=== PATIENT | male | born 1985 | race Two or more races ===

== ENCOUNTER 2017-09-16 18:55 | Inpatient (IN) | payer OTHER ==
[2017-09-16 20:15] VITALS: BMI 23.1
--- NOTE | 2017-09-16 21:45 | HP ---
COWS - Scale Resting Pulse: 0= [place] 80 or Below Sweatin=Flushed/Facial Moisture Restless Observation: 3= Extraneous Movement Pupil Size: 1= Pupils >than Normal Bone or Joint Aches: 1= Mild Discomfort Runny Nose/ Eye Tearin= Runny Nose/Eyes GI Upset > 30mins: 1= Stomach Cramp Tremor Observation: 2= Slight Tremor Visible Yawning Observation: 2= >3x During Session Anxiety or Irritability: 2=Irritable/Anxious Goose Flesh Skin: 3=Piloerection COWS Score: 19 CIWA Score - CIWA Score Nausea/Vomitin Muscle Tremors: 4-Moderate,w/Arms Extend Anxiety: 4-Mod. Anxious/Guarded Agitation: 0-Normal Activity Paroxysmal Sweats: 3 Orientation: 0-Oriented Tacttile Disturbances: 1-Very Mild Itch/Numbness Auditory Disturbances: 1-Very Mild Visual Disturbances: 2-Mild Sensitivity Headache: 0-None Present CIWA-Ar Total Score: 18 Admission ROS [facility] - HPI Chief Complaint: withdrawal symptoms Allergies/Adverse Reactions: Allergies Allergy/AdvReac Type Severity Reaction Status Date / Time budesonide [From Symbicort] Allergy Severe Difficulty Verified 09/16/17 21:33 Breathing formoterol [From Symbicort] Allergy Severe Difficulty Verified 09/16/17 21:33 Breathing History of Present Illness: 32 yo male with history of ETOH, Heroin, and Cocaine dependence. Reports medical history of asthma. Denies any suicidal / homicidal ideation. Last detox at [facility] 09/13/17, did not complete treatment, stayed for one day. Reports no period of sobriety. Exam Limitations: No Limitations - Ebola screening Have you traveled outside of the country in the last 21 days: No Have you had contact with anyone from an Ebola affected area: No Have you been sick,other than usual withdrawal symptoms: No Do you have a fever: No - Review of Systems Constitutional: Chills, Changes in sleep, Unintentional Wgt. Loss (reports weight loss 30 lb in the past 2 years) EENT: reports: No Symptoms Reported Respiratory: reports: No Symptoms reported Cardiac: reports: No Symptoms Reported GI: reports: Constipated (last BM 3 days ago), Abdominal cramping : reports: No Symptoms Reported (reports no urinary symptoms) Musculoskeletal: reports: No Symptoms Reported, Back Pain Integumentary: reports: No Symptoms Reported Neuro: reports: Numbness, Tingling (hands and feet) Endocrine: reports: Increased Thirst, Change in Weight Hematology: reports: No Symptoms Reported Psychiatric: reports: Orientated x3, Anxious, Depressed Other Systems: Reviewed and Negative Patient History - Patient Medical History Hx Anemia: No Hx Asthma: Yes Hx Chronic Obstructive Pulmonary Disease (COPD): No Hx Cancer: No Hx Cardiac Disorders: No Hx Congestive Heart Failure: No Hx Hypertension: No Hx Hypercholesterolemia: No Hx Pacemaker: No Hx Seizures: No Hx Dementia: No Hx Diabetes: No Hx Gastrointestinal Disorders: No Hx Liver Disease: No Hx Genitourinary Disorders: No Hx Sexually Transmitted Disorders: No Hx Renal Disease (ESRD): No Hx Thyroid Disease: No Hx Human Immunodeficiency Virus (HIV): No (last exam Apr 2017 ) Hx Hepatitis C: No Hx Depression: Yes Hx Suicide Attempt: No Hx Bipolar Disorder: No Hx Schizophrenia: No - Patient Surgical History Past Surgical History: No Hx Neurologic Surgery: No Hx Cataract Extraction: No Hx Cardiac Surgery: No Hx Lung Surgery: No Hx Breast Surgery: No Hx Breast Biopsy: No Hx Abdominal Surgery: No Hx Appendectomy: No Hx Cholecystectomy: No Hx Genitourinary Surgery: No Hx Section: No Hx Orthopedic Surgery: No Hx Hysterectomy: No Anesthesia Reaction: No - PPD History Previous Implant?: Yes Documented Results: Negative w/o proof PPD to be Administered?: Yes - Reproductive History Patient is a Female of Child Bearing Age (11 -55 yrs old): No - Smoking Cessation Smoking history: Current every day smoker Have you smoked in the past 12 months: Yes Aproximately how many cigarettes per day: 20 Hx Chewing Tobacco Use: No Initiated information on smoking cessation: Yes 'Breaking Loose' booklet given: 09/16/17 - Substance & Tx. History Hx Alcohol Use: Yes Hx Substance Use: Yes Substance Use Type: Alcohol, Cocaine, Heroin, Marijuana, Opiates Hx Substance Use Treatment: Yes ([facility] 09/13/17 did not complete treatment ) - Substances Abused Alcohol Route: Oral Frequency: Daily Amount used: LIQUOR- 3 PINTS ( Quentin walker / Mya) , BEER- 1 CASE Age of first use: 13 Date of Last Use: 09/14/17 Heroin Route: Injection Frequency: Daily Amount used: 20 BAGS Age of first use: 30 Date of Last Use: 09/15/17 Cocaine Route: Injection Frequency: Daily Amount used: $300 WORTH Age of first use: 26 Date of Last Use: 09/15/17 Family Disease History - Family Disease History Family Disease History: Heart Disease: Mother (kimevdieter), Other: Father (dec, alcoholic, suicide ) Admission Physical Exam [facility] - Vital Signs Vital Signs: Vital Signs - 24 hr 09/16/17 20:13 Temperature 97.9 F Pulse Rate 75 Respiratory 19 Rate Blood Pressure 130/72 - Physical General Appearance: Yes: Appropriately Dressed, Thin, Irritable, Anxious HEENTM: Yes: EOMI, Hearing grossly Normal, Normal ENT Inspection, Normocephalic , Normal Voice, JACOBO, Pharynx Normal, Tm's normal Respiratory: Yes: Chest Non-Tender, Lungs Clear, No Respiratory Distress, No Accessory Muscle Use, Wheezing, Other (wheezing b/l throughout) Neck: Yes: Within Normal Limits, No masses,lesions,Nodules Breast: Yes: Breast Exam Deferred Cardiology: Yes: Regular Rhythm, Regular Rate, S1, S2 Abdominal: Yes: Within Normal Limits, Normal Bowel Sounds, Non Tender, Flat, Soft Genitourinary: Yes: Within Normal Limits (reports no) Back: Yes: Normal Inspection Musculoskeletal: Yes: full range of Motion, Gait Steady, Pelvis Stable Extremities: Yes: Normal Capillary Refill, Normal Inspection, Normal Range of Motion, Non-Tender, Tremors Neurological: Yes: Fully Oriented, Alert, Motor Strength 5/5, Normal Mood/Affect , Normal Response Integumentary: Yes: Dry, Warm, Track Awad (bilateral forearm in different healing stages, no signs of infection), Other (poor skin turgor) Lymphatic: Yes: Within Normal Limits - Diagnostic (1) Alcohol dependence with withdrawal, uncomplicated Current Visit: Yes Status: Acute (2) Opioid dependence with withdrawal Current Visit: Yes Status: Acute (3) Cocaine dependence Current Visit: Yes Status: Chronic (4) Dehydration Current Visit: Yes Status: Acute (5) Anxious mood Current Visit: Yes Status: Acute (6) Asthma Current Visit: Yes Status: Chronic Qualifiers: Asthma severity: mild Asthma persistence: unspecified Cleared for Admission [facility] - Detox or Rehab [facility] Level of Care: Medically Managed Detox Regimen/Protocol: Methadone/Librium S Breath Alcohol Content Breath Alcohol Content: 0 Urine Drug Screen - Results Drug Screen Negative: No Urine Drug Screen Results: GUANACO-Cocaine, OPI-Opiates, MET-Methamphetamine, BZO- Benzodiazepines, MTD-Methadone, OXY-Oxycodone
[2017-09-16] MEDS ORDERED: IBUPROFEN 400 MG TABLET (FP) PO PRN (22:17)
[2017-09-16] MEDS ORDERED: MAGNESIUM HYDROX 2400MG/30ML ORAL SUSPENSION 30 ML CUP PO PRN (22:17)
[2017-09-16] MEDS ORDERED: MAG HYDROX/AL HYDROX/SIMETH 30 ML UNIT-DOSE CUP PO PRN (22:17)
[2017-09-16] MEDS ORDERED: NICOTINE POLACRILEX 2 MG GUM BC PRN (22:17)
[2017-09-16] MEDS ORDERED: diazePAM 5 MG TABLET PO ONE (22:17)
[2017-09-16] MEDS ORDERED: ACETAMINOPHEN 325 MG TABLET (FP) PO PRN (22:17)
[2017-09-16] MEDS ORDERED: METHADONE HCL 10 MG TABLET (FOR DETOX USE ONLY) PO ONE ×2 (22:17→23:00)
[2017-09-16] MEDS ORDERED: LOPERAMIDE HCL 2 MG CAPSULE PO PRN (22:17)
[2017-09-16] MEDS ORDERED: MENTHOL/PHENOL 1 EACH UD MM PRN (22:17)
[2017-09-16] MEDS ORDERED: guaiFENesin/D-METHORPHAN HB 10 ML UNIT-DOSE CUPS PO PRN (22:17)
[2017-09-16] MEDS ORDERED: MAGNESIUM CITRATE 300 ML BOTTLE PO PRN (22:17)
[2017-09-16] MEDS ORDERED: P-EPHED 60MG/TRIPROLIDI 2.5MG TABLET PO PRN (22:17)
[2017-09-16] MEDS: diazePAM 5 MG TABLET PO SCH (23:38)
[2017-09-17] MEDS: diazePAM 5 MG TABLET PO SCH ×3 (06:08→22:05)
--- NOTE | 2017-09-17 08:04 | EKG ---
Test Reason : Blood Pressure : / mmHG Vent. Rate : 063 BPM Atrial Rate : 063 BPM P-R Int : 162 ms QRS Dur : 094 ms QT Int : 484 ms P-R-T Axes : 052 063 058 degrees QTc Int : 495 ms NORMAL SINUS RHYTHM PROLONGED QT ABNORMAL ECG NO PREVIOUS ECGS AVAILABLE Confirmed by ISABEL ROBERTS MD ([id number]) on 09/17/2017 8:03:57 AM Referred By: Confirmed By:ISABEL ROBERTS MD
--- NOTE | 2017-09-17 08:04 | EKG ---
Test Reason : Blood Pressure : / mmHG Vent. Rate : 061 BPM Atrial Rate : 061 BPM P-R Int : 154 ms QRS Dur : 094 ms QT Int : 478 ms P-R-T Axes : 055 060 045 degrees QTc Int : 481 ms NORMAL SINUS RHYTHM PROLONGED QT ABNORMAL ECG WHEN COMPARED WITH ECG OF 16-SEP-2017 23:21, NO SIGNIFICANT CHANGE WAS FOUND Confirmed by ISABEL ROBERTS MD ([id number]) on 09/17/2017 8:04:00 AM Referred By: Confirmed By:ISABEL ROBERTS MD
[2017-09-17] MEDS ORDERED: ALBUTEROL SO4 18 GM HFA INHALER IH PRN (10:00)
[2017-09-17] MEDS ORDERED: METHADONE HCL 10 MG TABLET (FOR DETOX USE ONLY) PO SCH (10:00)
[2017-09-17 10:07] LABS: HEMATOCRIT 36.9 % (35.4-49); HEMOGLOBIN 11.9 GM/dL (11.7-16.9); MCH 29.7 pg (25.7-33.7); MCHC 32.2 g/dl (32.0-35.9); MEAN CELL VOLUME 92.2 fl (80-96); MEAN PLT VOLUME 7.7 fl (7.5-11.1); PLATELET COUNT 297 K/MM3 (134-434); RBC 4.01 M/mm3 (4.00-5.60); RDW 15.1 % (11.9-15.9); WHITE BLOOD COUNT 7.5 K/mm3 (4.0-10.0)
[2017-09-17 10:17] LABS: CHLORIDE 106 mmol/L (98-107); POTASSIUM 3.7 mmol/L (3.5-5.1); SODIUM 141 mmol/L (136-145)
[2017-09-17 10:41] LABS: ALBUMIN 3.1 g/dl (3.4-5.0); ALK PHOS 104 U/L (45-117); ANION GAP 9 (8-16); BILIRUBIN,TOTAL 0.3 mg/dL (0.2-1.0); BLOOD UREA NITROGEN 13 mg/dL (7-18); CALCIUM 8.4 mg/dL (8.5-10.1); CO2 26 mmol/L (21-32); CREATININE 0.8 mg/dL (0.7-1.3); GLUCOSE,RANDOM 99 mg/dL (74-106); SGOT/AST 18 U/L (15-37); SGPT/ALT 29 U/L (12-78); TOT PROT 6.3 g/dl (6.4-8.2)
[2017-09-17] MEDS: PRENATAL VITAMINS W/ FOLIC ACID TABLET (FP) PO SCH (10:42)
[2017-09-17] MEDS: diazePAM 5 MG TABLET PO PRN (10:42)
[2017-09-17] MEDS: NICOTINE 21 MG/24 HOURS TOPICAL PATCH TD SCH (10:43)
--- NOTE | 2017-09-17 11:18 | CONSULT ---
[facility] Psychiatric Consult - Data Date of interview: 09/17/17 Admission source: [facility] Identifying data: First admission to [facility] for this 32 y/o male seeking detox treatment on for alcohol,cocaine,cannabis and heroin dependence.Patient is single,a father of three,domiciled,unemployed and currently supported on welfare Substance Abuse History: Discussed in this session.Mr Milian confirmed the addictions detailed in current [facility] report : Smoking history: Current every day smoker. Have you smoked in the past 12 months: Yes. Aproximately how many cigarettes per day: 20. Hx Chewing Tobacco Use: No. Initiated information on smoking cessation: Yes. 'Breaking Loose' booklet given: 09/16/17. - Substance & Tx. History. Hx Alcohol Use: Yes. Hx Substance Use: Yes. Substance Use Type : Alcohol, Cocaine, Heroin, Marijuana, Opiates. Hx Substance Use Treatment: Yes ([facility] 09/13/17 did not complete treatment ). - Substances Abused. Alcohol. Route: Oral. Frequency: Daily. Amount used: LIQUOR- 3 PINTS ( Quentin walker / Mya) , BEER- 1 CASE. Age of first use: 13. Date of Last Use: . Heroin. Route: Injection. Frequency: Daily. Amount used: 20 BAGS. Age of first use: 30. Date of Last Use: 09/15/17. Cocaine. Route: Injection. Frequency: Daily. Amount used: $300 WORTH. Age of first use: 26. Date of Last Use: 09/15/17 Medical History: Bronchial asthma. Psychiatric History: Patient denies. Physical/Sexual Abuse/Trauma History: Patient denies. Additional Comment: Urine Drug Screen Results: GUANACO-Cocaine, OPI-Opiates, MET- Methamphetamine, BZO-Benzodiazepines, MTD-Methadone, OXY-Oxycodone.Noted. Mental Status Exam - Mental Status Exam Alert and Oriented to: Time, Place, Person Cognitive Function: Good Patient Appearance: Well Groomed Mood: Hopeful, Euthymic Affect: Appropriate, Normal Range Patient Behavior: Appropriate, Cooperative Speech Pattern: Clear, Appropriate Voice Loudness: Normal Thought Process: Intact, Goal Oriented Thought Disorder: Not Present Hallucinations: Denies Suicidal Ideation: Denies Homicidal Ideation: Denies Insight/Judgement: Poor Sleep: Well Muscle strength/Tone: Normal Gait/Station: Normal Psychiatric Findings - Problem List ([place] 1, 2,3) (1) Alcohol dependence with withdrawal, uncomplicated Current Visit: Yes Status: Acute (2) Opioid dependence with withdrawal Current Visit: Yes Status: Acute (3) Cocaine dependence Current Visit: Yes Status: Acute Qualifiers: Substance use status: uncomplicated Qualified Code(s): F14.20 - Cocaine dependence, uncomplicated (4) Nicotine dependence Current Visit: Yes Status: Acute Qualifiers: Nicotine product type: cigarettes Substance use status: in withdrawal Qualified Code(s): F17.213 - Nicotine dependence, cigarettes, with withdrawal - Initial Treatment Plan Initial Treatment Plan: Psychoeducation and support.Detoxification in progress.Daily monitoring of clinical course.
--- NOTE | 2017-09-17 12:07 | PN ---
[facility] CIWA - CIWA Score Nausea/Vomitin-No Nausea/No Vomiting Muscle Tremors: 4-Moderate,w/Arms Extend Anxiety: 4-Mod. Anxious/Guarded Agitation: 4-Moderately Restless Paroxysmal Sweats: 1-Minimal Palms Moist Orientation: 0-Oriented Tacttile Disturbances: 3-Moderate Itch/Numb/Burn Auditory Disturbances: 0-None Visual Disturbances: 0-None Headache: 0-None Present CIWA-Ar Total Score: 16 S COWS - Scale Resting Pulse: 0= [place] 80 or Below Sweatin= Chills/Flushing Restless Observation: 3= Extraneous Movement Pupil Size: 0= Normal to Room Light Bone or Joint Aches: 4=Acute Joint/Muscle Pain Runny Nose/ Eye Tearin= None GI Upset > 30mins: 1= Stomach Cramp Tremor Observation of Outstretched Hands: 1= Tremor [place], Not Seen Yawning Observation: 1= 1-2x During Session Anxiety or Irritability: 2=Irritable/Anxious Goose Flesh Skin: 0=Smooth Skin COWS Score: 13 [facility] Progress Note (SOAP) Subjective: ANXIETY,SWEATS,INTERMITTENT SLEEP Objective: 09/17/17 12:05 Vital Signs Temperature 97.8 F 09/17/17 09:10 Pulse Rate 65 09/17/17 09:10 Respiratory Rate 18 09/17/17 09:10 Blood Pressure 113/72 09/17/17 09:10 O2 Sat by Pulse Oximetry (%) Laboratory Last Values WBC 7.5 K/mm3 (4.0-10.0) 09/17/17 07:00 RBC 4.01 M/mm3 (4.00-5.60) 09/17/17 07:00 Hgb 11.9 GM/dL (11.7-16.9) 09/17/17 07:00 Hct 36.9 % (35.4-49) 09/17/17 07:00 MCV 92.2 fl (80-96) 09/17/17 07:00 MCH 29.7 pg (25.7-33.7) 09/17/17 07:00 MCHC 32.2 g/dl (32.0-35.9) 09/17/17 07:00 RDW 15.1 % (11.9-15.9) 09/17/17 07:00 Plt Count 297 K/MM3 (134-434) 09/17/17 07:00 MPV 7.7 fl (7.5-11.1) 09/17/17 07:00 Sodium 141 mmol/L (136-145) 09/17/17 07:00 Potassium 3.7 mmol/L (3.5-5.1) 09/17/17 07:00 Chloride 106 mmol/L (98-107) 09/17/17 07:00 Carbon Dioxide 26 mmol/L (21-32) 09/17/17 07:00 Anion Gap 9 (8-16) 09/17/17 07:00 BUN 13 mg/dL (7-18) 09/17/17 07:00 Creatinine 0.8 mg/dL (0.7-1.3) 09/17/17 07:00 Creat Clearance w eGFR > 60 (>60) 09/17/17 07:00 Random Glucose 99 mg/dL (74-106) 09/17/17 07:00 Calcium 8.4 mg/dL (8.5-10.1) L 09/17/17 07:00 Total Bilirubin 0.3 mg/dL (0.2-1.0) 09/17/17 07:00 AST 18 U/L (15-37) 09/17/17 07:00 ALT 29 U/L (12-78) 09/17/17 07:00 Alkaline Phosphatase 104 U/L (45-117) 09/17/17 07:00 Total Protein 6.3 g/dl (6.4-8.2) L 09/17/17 07:00 Albumin 3.1 g/dl (3.4-5.0) L 09/17/17 07:00 Assessment: 09/17/17 12:05 WITHDRAWAL SX Plan: CONTINUE DETOX
--- NOTE | 2017-09-17 15:20 | EKG ---
Test Reason : Blood Pressure : / mmHG Vent. Rate : 070 BPM Atrial Rate : 070 BPM P-R Int : 148 ms QRS Dur : 094 ms QT Int : 432 ms P-R-T Axes : 060 065 055 degrees QTc Int : 466 ms NORMAL SINUS RHYTHM NORMAL ECG WHEN COMPARED WITH ECG OF 17-SEP-2017 06:31, NO SIGNIFICANT CHANGE WAS FOUND Confirmed by ISABEL ROBERTS MD ([id number]) on 09/17/2017 3:20:16 PM Referred By: Confirmed By:ISAEBL ROBERTS MD
[2017-09-17 17:19] LABS: URINE APPEARANCE CLEAR; URINE BILIRUBIN NEGATIVE (NEGATIVE); URINE BLOOD NEGATIVE (NEGATIVE); URINE COLOR LTYELLOW; URINE GLUCOSE (UA) NEGATIVE (NEGATIVE); URINE KETONE NEGATIVE (NEGATIVE); URINE LEUK ESTERASE NEGATIVE (NEGATIVE); URINE NITRITE NEGATIVE (NEGATIVE); URINE PROTEIN NEGATIVE (NEGATIVE); URINE UROBILINOGEN NEGATIVE mg/dL (0.2-1.0)
[2017-09-17] MEDS: THIAMINE HCL 100 MG TABLET (FP) PO SCH (22:05)
[2017-09-18] MEDS: METHADONE HCL 5 MG TABLET (FOR DETOX USE ONLY) PO SCH (10:56)
[2017-09-18] MEDS: PRENATAL VITAMINS W/ FOLIC ACID TABLET (FP) PO SCH (10:56)
[2017-09-18] MEDS: diazePAM 5 MG TABLET PO SCH ×2 (10:57→22:17)
[2017-09-18] MEDS: NICOTINE 21 MG/24 HOURS TOPICAL PATCH TD SCH (11:25)
[2017-09-18] MEDS: diazePAM 5 MG TABLET PO PRN ×2 (13:09→17:32)
--- NOTE | 2017-09-18 13:26 | PN ---
[facility] CIWA - CIWA Score Nausea/Vomitin-No Nausea/No Vomiting Muscle Tremors: 4-Moderate,w/Arms Extend Anxiety: 4-Mod. Anxious/Guarded Agitation: 4-Moderately Restless Paroxysmal Sweats: 1-Minimal Palms Moist Orientation: 0-Oriented Tacttile Disturbances: 3-Moderate Itch/Numb/Burn Auditory Disturbances: 0-None Visual Disturbances: 0-None Headache: 0-None Present CIWA-Ar Total Score: 16 S COWS - Scale Resting Pulse: 1= [place] 81-100 Sweatin= Chills/Flushing Restless Observation: 3= Extraneous Movement Pupil Size: 2= Moderately Dilated Bone or Joint Aches: 4=Acute Joint/Muscle Pain Runny Nose/ Eye Tearin= Nasal Congestion GI Upset > 30mins: 0= None (OIC) Tremor Observation of Outstretched Hands: 1= Tremor [place], Not Seen Yawning Observation: 1= 1-2x During Session Anxiety or Irritability: 2=Irritable/Anxious Goose Flesh Skin: 3=Piloerection COWS Score: 19 [facility] Progress Note (SOAP) Subjective: ANXIETY,SWEATS,IRRITABILITY,CHILLS,GOOSE BUMPS,MUSCLE SPASMS, NO BM X 5 DAYS. Objective: 09/18/17 14:45 Vital Signs Temperature 97.5 F L 09/18/17 13:48 Pulse Rate 83 09/18/17 13:48 Respiratory Rate 18 09/18/17 13:48 Blood Pressure 121/69 09/18/17 13:48 O2 Sat by Pulse Oximetry (%) Laboratory Last Values WBC 7.5 K/mm3 (4.0-10.0) 09/17/17 07:00 RBC 4.01 M/mm3 (4.00-5.60) 09/17/17 07:00 Hgb 11.9 GM/dL (11.7-16.9) 09/17/17 07:00 Hct 36.9 % (35.4-49) 09/17/17 07:00 MCV 92.2 fl (80-96) 09/17/17 07:00 MCH 29.7 pg (25.7-33.7) 09/17/17 07:00 MCHC 32.2 g/dl (32.0-35.9) 09/17/17 07:00 RDW 15.1 % (11.9-15.9) 09/17/17 07:00 Plt Count 297 K/MM3 (134-434) 09/17/17 07:00 MPV 7.7 fl (7.5-11.1) 09/17/17 07:00 Sodium 141 mmol/L (136-145) 09/17/17 07:00 Potassium 3.7 mmol/L (3.5-5.1) 09/17/17 07:00 Chloride 106 mmol/L (98-107) 09/17/17 07:00 Carbon Dioxide 26 mmol/L (21-32) 09/17/17 07:00 Anion Gap 9 (8-16) 09/17/17 07:00 BUN 13 mg/dL (7-18) 09/17/17 07:00 Creatinine 0.8 mg/dL (0.7-1.3) 09/17/17 07:00 Creat Clearance w eGFR > 60 (>60) 09/17/17 07:00 Random Glucose 99 mg/dL (74-106) 09/17/17 07:00 Calcium 8.4 mg/dL (8.5-10.1) L 09/17/17 07:00 Total Bilirubin 0.3 mg/dL (0.2-1.0) 09/17/17 07:00 AST 18 U/L (15-37) 09/17/17 07:00 ALT 29 U/L (12-78) 09/17/17 07:00 Alkaline Phosphatase 104 U/L (45-117) 09/17/17 07:00 Total Protein 6.3 g/dl (6.4-8.2) L 09/17/17 07:00 Albumin 3.1 g/dl (3.4-5.0) L 09/17/17 07:00 Urine Color Ltyellow 09/17/17 15:00 Urine Appearance Clear 09/17/17 15:00 Urine pH 6.0 (5.0-8.0) 09/17/17 15:00 Ur Specific [place] 1.020 (1.001-1.035) 09/17/17 15:00 Urine Protein Negative (NEGATIVE) 09/17/17 15:00 Urine Glucose (UA) Negative (NEGATIVE) 09/17/17 15:00 Urine Ketones Negative (NEGATIVE) 09/17/17 15:00 Urine Blood Negative (NEGATIVE) 09/17/17 15:00 Urine Nitrite Negative (NEGATIVE) 09/17/17 15:00 Urine Bilirubin Negative (NEGATIVE) 09/17/17 15:00 Urine Urobilinogen Negative mg/dL (0.2-1.0) 09/17/17 15:00 Ur Leukocyte Esterase Negative (NEGATIVE) 09/17/17 15:00 RPR Titer Nonreactive (NONREACTIVE) 09/17/17 07:00 Hepatitis C Antibody <0.1 s/co ratio (0.0-0.9) 09/16/17 07:00 HIV 1&2 Antibody Screen Negative 09/17/17 07:00 HIV P24 Antigen Negative 09/17/17 07:00 Assessment: 09/18/17 14:45 WITHDRAWAL SX Plan: CONTINUE DETOX MOM PRN; CITRATE OF MAG IF NOT EFFECTIVE.
[2017-09-18] MEDS: THIAMINE HCL 100 MG TABLET (FP) PO SCH (22:17)
[2017-09-18] MEDS: hydrOXYzine PAMOATE 50 MG CAPSULE (FP) PO PRN ×2 (22:17)
[2017-09-19] MEDS: diazePAM 5 MG TABLET PO SCH ×2 (09:38→22:26)
[2017-09-19] MEDS: PRENATAL VITAMINS W/ FOLIC ACID TABLET (FP) PO SCH (09:38)
[2017-09-19] MEDS: METHADONE HCL 5 MG TABLET (FOR DETOX USE ONLY) PO SCH (09:38)
[2017-09-19] MEDS: NICOTINE 21 MG/24 HOURS TOPICAL PATCH TD SCH (09:38)
[2017-09-19] MEDS ORDERED: cloNIDine HCL 0.1 MG TABLET PO ONE (10:23)
--- NOTE | 2017-09-19 17:06 | PN ---
[facility] Progress Note (SOAP) Subjective: C/O ANXIETY,IRRITABILITY,SWEATS. Objective: 09/19/17 17:05 Vital Signs Temperature 99.0 F 09/19/17 13:10 Pulse Rate 77 09/19/17 13:10 Respiratory Rate 18 09/19/17 13:10 Blood Pressure 117/71 09/19/17 13:10 O2 Sat by Pulse Oximetry (%) Laboratory Last Values WBC 7.5 K/mm3 (4.0-10.0) 09/17/17 07:00 RBC 4.01 M/mm3 (4.00-5.60) 09/17/17 07:00 Hgb 11.9 GM/dL (11.7-16.9) 09/17/17 07:00 Hct 36.9 % (35.4-49) 09/17/17 07:00 MCV 92.2 fl (80-96) 09/17/17 07:00 MCH 29.7 pg (25.7-33.7) 09/17/17 07:00 MCHC 32.2 g/dl (32.0-35.9) 09/17/17 07:00 RDW 15.1 % (11.9-15.9) 09/17/17 07:00 Plt Count 297 K/MM3 (134-434) 09/17/17 07:00 MPV 7.7 fl (7.5-11.1) 09/17/17 07:00 Sodium 141 mmol/L (136-145) 09/17/17 07:00 Potassium 3.7 mmol/L (3.5-5.1) 09/17/17 07:00 Chloride 106 mmol/L (98-107) 09/17/17 07:00 Carbon Dioxide 26 mmol/L (21-32) 09/17/17 07:00 Anion Gap 9 (8-16) 09/17/17 07:00 BUN 13 mg/dL (7-18) 09/17/17 07:00 Creatinine 0.8 mg/dL (0.7-1.3) 09/17/17 07:00 Creat Clearance w eGFR > 60 (>60) 09/17/17 07:00 Random Glucose 99 mg/dL (74-106) 09/17/17 07:00 Calcium 8.4 mg/dL (8.5-10.1) L 09/17/17 07:00 Total Bilirubin 0.3 mg/dL (0.2-1.0) 09/17/17 07:00 AST 18 U/L (15-37) 09/17/17 07:00 ALT 29 U/L (12-78) 09/17/17 07:00 Alkaline Phosphatase 104 U/L (45-117) 09/17/17 07:00 Total Protein 6.3 g/dl (6.4-8.2) L 09/17/17 07:00 Albumin 3.1 g/dl (3.4-5.0) L 09/17/17 07:00 Urine Color Ltyellow 09/17/17 15:00 Urine Appearance Clear 09/17/17 15:00 Urine pH 6.0 (5.0-8.0) 09/17/17 15:00 Ur Specific [place] 1.020 (1.001-1.035) 09/17/17 15:00 Urine Protein Negative (NEGATIVE) 09/17/17 15:00 Urine Glucose (UA) Negative (NEGATIVE) 09/17/17 15:00 Urine Ketones Negative (NEGATIVE) 09/17/17 15:00 Urine Blood Negative (NEGATIVE) 09/17/17 15:00 Urine Nitrite Negative (NEGATIVE) 09/17/17 15:00 Urine Bilirubin Negative (NEGATIVE) 09/17/17 15:00 Urine Urobilinogen Negative mg/dL (0.2-1.0) 09/17/17 15:00 Ur Leukocyte Esterase Negative (NEGATIVE) 09/17/17 15:00 RPR Titer Nonreactive (NONREACTIVE) 09/17/17 07:00 Hepatitis C Antibody <0.1 s/co ratio (0.0-0.9) 09/16/17 07:00 HIV 1&2 Antibody Screen Negative 09/17/17 07:00 HIV P24 Antigen Negative 09/17/17 07:00 Assessment: 09/19/17 17:05 WITHDRAWAL SX Plan: CONTINUE DETOX CLONIDINE 0.1 MG PO STAT GIVEN. INCREASE PO FLUIDS.
[2017-09-19] MEDS: diazePAM 5 MG TABLET PO PRN (17:09)
[2017-09-19] MEDS: THIAMINE HCL 100 MG TABLET (FP) PO SCH (22:26)
[2017-09-19] MEDS: hydrOXYzine PAMOATE 50 MG CAPSULE (FP) PO PRN (22:26)
[2017-09-20] MEDS: hydrOXYzine PAMOATE 50 MG CAPSULE (FP) PO PRN (07:13)
[2017-09-20 09:36] VITALS: BP 128/76; PULSE 72; TEMP 96.4
[2017-09-20] MEDS ORDERED: diazePAM 5 MG TABLET PO SCH (10:00)
[2017-09-20] MEDS ORDERED: METHADONE HCL 10 MG TABLET (FOR DETOX USE ONLY) PO SCH (10:00)
[2017-09-20] MEDS: PRENATAL VITAMINS W/ FOLIC ACID TABLET (FP) PO SCH (10:48)
[2017-09-20] MEDS: NICOTINE 21 MG/24 HOURS TOPICAL PATCH TD SCH (10:48)
--- NOTE | 2017-09-20 13:42 | DS ---
[facility] Detox Discharge Summary Admission Date: 09/16/17 Discharge Date: 09/20/17 - History Present History: Alcohol Dependence, Cocaine Dependence, Opioid Dependence Additional Comments: PATIENT DOES NOT WISH TO STAY TO COMPLETE DETOX REGIMEN. RISKS OF LEAVING DETOX UNIT PRIOR TO COMPLETION OF DETOX REGIMEN EXPLAINED TO PATIENT. PATIENT ADVISED TO GO IMMEDIATELY TO NEAREST ER SHOULD ANY INTOLERABLE DETOX SYMPTOMS DEVELOP AT ANY TIME. PATIENT LEFT DETOX UNIT IN STABLE MEDICAL CONDITION. Pertinent Past History: Asthma, Dehydration, Depression, Insomnia, Anxiety, Nicotine Dependence. - Physical Exam Results Vital Signs: Vital Signs Temperature 96.4 F L 09/20/17 09:35 Pulse Rate 72 09/20/17 09:35 Respiratory Rate 16 09/20/17 09:35 Blood Pressure 128/76 09/20/17 09:35 O2 Sat by Pulse Oximetry (%) Pertinent Admission Physical Exam Findings: WITHDRAWAL SYMPTOMS. Laboratory Tests 09/16/17 09/17/17 09/17/17 07:00 07:00 07:00 WBC 7.5 RBC 4.01 Hgb 11.9 Hct 36.9 MCV 92.2 MCH 29.7 MCHC 32.2 RDW 15.1 Plt Count 297 MPV 7.7 Sodium 141 Potassium 3.7 Chloride 106 Carbon Dioxide 26 Anion Gap 9 BUN 13 Creatinine 0.8 Creat Clearance w eGFR > 60 Random Glucose 99 Calcium 8.4 L Total Bilirubin 0.3 AST 18 ALT 29 Alkaline Phosphatase 104 Total Protein 6.3 L Albumin 3.1 L Urine Color Urine Appearance Urine pH Ur Specific [place] Urine Protein Urine Glucose (UA) Urine Ketones Urine Blood Urine Nitrite Urine Bilirubin Urine Urobilinogen Ur Leukocyte Esterase RPR Titer Hepatitis C Antibody <0.1 HIV 1&2 Antibody Screen HIV P24 Antigen 09/17/17 09/17/17 09/17/17 07:00 07:00 15:00 WBC RBC Hgb Hct MCV MCH MCHC RDW Plt Count MPV Sodium Potassium Chloride Carbon Dioxide Anion Gap BUN Creatinine Creat Clearance w eGFR Random Glucose Calcium Total Bilirubin AST ALT Alkaline Phosphatase Total Protein Albumin Urine Color Ltyellow Urine Appearance Clear Urine pH 6.0 Ur Specific [place] 1.020 Urine Protein Negative Urine Glucose (UA) Negative Urine Ketones Negative Urine Blood Negative Urine Nitrite Negative Urine Bilirubin Negative Urine Urobilinogen Negative Ur Leukocyte Esterase Negative RPR Titer Nonreactive Hepatitis C Antibody HIV 1&2 Antibody Screen Negative HIV P24 Antigen Negative LABS NOTED. - Treatment Hospital Course: Detoxed Safely - Medication Discharge Medications: Ambulatory Orders Albuterol Sulfate Inhaler - [Ventolin Hfa Inhaler -] 1 - 2 inh PO QID 09/16/17 - Diagnosis (1) Alcohol dependence with withdrawal, uncomplicated Status: Acute (2) Anxious mood Status: Acute (3) Cocaine dependence Status: Acute Qualifiers: Substance use status: uncomplicated Qualified Code(s): F14.20 - Cocaine dependence, uncomplicated (4) Dehydration Status: Acute (5) Nicotine dependence Status: Acute Qualifiers: Nicotine product type: cigarettes Substance use status: in withdrawal Qualified Code(s): F17.213 - Nicotine dependence, cigarettes, with withdrawal (6) Opioid dependence with withdrawal Status: Acute (7) Asthma Status: Chronic Qualifiers: Asthma severity: mild Asthma persistence: unspecified Asthma complication type: uncomplicated Qualified Code(s): J45.909 - Unspecified asthma, uncomplicated - AMA Did Patient Leave Against Medical Advice: Yes (PATIENT DID NOT WISH TO STAY TO COMPLETE DETOX REGIMEN.)
[2017-09-21] MEDS ORDERED: METHADONE HCL 5 MG TABLET (FOR DETOX USE ONLY) PO SCH (06:00)
== END 2017-09-20 09:46 | disposition left against medical advice (07) | DRG 770 ==
LOC: YASAS 18:55 → Y3N 21:58
PROVIDERS: ADMIT Internal Medicine; ATTEND Internal Medicine
PROC: HZ2ZZZZ Detoxification Services for Substance Abuse Treatment (ICD-10-PCS; principal; 2017-09-16)
DX: F11.23 Opioid dependence with withdrawal (principal); F10.230 Alcohol dependence with withdrawal, uncomplicated; F14.20 Cocaine dependence, uncomplicated; F17.213 Nicotine dependence, cigarettes, with withdrawal; F41.9 Anxiety disorder, unspecified; E86.0 Dehydration; J45.909 Unspecified asthma, uncomplicated
CPT/HCPCS: 36415; 80053; 81003; 85027; 86593; 86803; 87389; 93005; 93010; J0735

== ENCOUNTER 2018-04-03 09:02 | Inpatient (IN) | payer OTHER ==
[2018-04-03 09:52] VITALS: BMI 22.8
--- NOTE | 2018-04-03 12:56 | HP ---
COWS - Scale Resting Pulse: 0= MD 80 or Below Sweatin=Flushed/Facial Moisture Restless Observation: 3= Extraneous Movement Pupil Size: 0= Normal to Room Light Bone or Joint Aches: 4=Acute Joint/Muscle Pain Runny Nose/ Eye Tearin= Runny Nose/Eyes GI Upset > 30mins: 1= Stomach Cramp (AND CONSTIPATION) Tremor Observation: 2= Slight Tremor Visible Yawning Observation: 1= 1-2x During Session Anxiety or Irritability: 2=Irritable/Anxious Goose Flesh Skin: 0=Smooth Skin COWS Score: 17 CIWA Score - CIWA Score Nausea/Vomitin-No Nausea/No Vomiting Muscle Tremors: 3 Anxiety: 4-Mod. Anxious/Guarded Agitation: 4-Moderately Restless Paroxysmal Sweats: 1-Minimal Palms Moist Orientation: 0-Oriented Tacttile Disturbances: 0-None Auditory Disturbances: 0-None Visual Disturbances: 0-None Headache: 0-None Present CIWA-Ar Total Score: 12 Admission ROS S - HPI Chief Complaint: HEROIN AND ALCOHOL WITHDRAWAL SX-"I OVERDOSED DAY BEFORE YESTERDAY". Allergies/Adverse Reactions: Allergies Allergy/AdvReac Type Severity Reaction Status Date / Time budesonide [From Symbicort] Allergy Severe Difficulty Verified 04/03/18 11:41 Breathing formoterol [From Symbicort] Allergy Severe Difficulty Verified 04/03/18 11:41 Breathing History of Present Illness: PT IS A 32 Y/O H/MALE WITH A HX OF HEROIN, ALCOHOL AND COCAINE DEPENDENCE SEEKING DETOX TX. PT WAS DISCHARGED FROM [facility] TODAY AND TOLD TO GO TO DETOX. PT REPORTS HE OVERDOSED ON 04/01/18 AND HOSPITALIZED TILL TODAY THEN DISCHARGED(COPY OF D/C INSTRUCTIONS WITH PATIENT AND PLACED WITH HIS ADMISSION PACKAGE TODAY). Exam Limitations: No Limitations - Ebola screening Have you traveled outside of the country in the last 21 days: No Have you had contact with anyone from an Ebola affected area: No Have you been sick,other than usual withdrawal symptoms: No Do you have a fever: No - Review of Systems Constitutional: Chills, Loss of Appetite, Night Sweats, Changes in sleep, Unintentional Wgt. Loss EENT: reports: Tearing, Nose Congestion, Dental Problems (MISSING TEETH/BROKEN) Respiratory: reports: Shortness of Breath (HX ASTHMA), Wheezing GI: reports: Constipated, Diarrhea, Nausea, Poor Appetite, Poor Fluid Intake, Vomiting : reports: Frequency Musculoskeletal: reports: Back Pain, Muscle Pain Integumentary: reports: Bruising (IVD INJ SITES) Neuro: reports: Headache, Numbness, Tingling, Tremors, Unsteady Gait Endocrine: reports: No Symptoms Reported Hematology: reports: No Symptoms Reported Psychiatric: reports: Orientated x3 Other Systems: Reviewed and Negative Patient History - Patient Medical History Hx Anemia: No Hx Asthma: Yes (MDI) Hx Chronic Obstructive Pulmonary Disease (COPD): No Hx Cancer: No Hx Cardiac Disorders: No Hx Congestive Heart Failure: No Hx Hypertension: No Hx Hypercholesterolemia: No Hx Pacemaker: No Hx Seizures: No Hx Dementia: No Hx Diabetes: No Hx Gastrointestinal Disorders: No Hx Liver Disease: No Hx Genitourinary Disorders: No Hx Sexually Transmitted Disorders: No (DENIES) Hx Renal Disease (ESRD): No Hx Thyroid Disease: No Hx Human Immunodeficiency Virus (HIV): No (NEGATIVE HX) Hx Hepatitis C: No (DENIES) Hx Depression: No Hx Suicide Attempt: No (DENIES S/I) Hx Bipolar Disorder: No Hx Schizophrenia: No - Patient Surgical History Past Surgical History: No Hx Neurologic Surgery: No Hx Cataract Extraction: No Hx Cardiac Surgery: No Hx Lung Surgery: No Hx Breast Surgery: No Hx Breast Biopsy: No Hx Abdominal Surgery: No Hx Appendectomy: No Hx Cholecystectomy: No Hx Genitourinary Surgery: No Hx Orthopedic Surgery: No Hx Hysterectomy: No Anesthesia Reaction: No - PPD History Previous Implant?: Yes Documented Results: Negative w/proof Implanted On Prior [facility] Admission?: Yes Date: 09/18/17 Results: 0 mm PPD to be Administered?: No - Reproductive History Patient is a Female of Child Bearing Age (11 -55 yrs old): No (MALE) - Smoking Cessation Smoking history: Current every day smoker Have you smoked in the past 12 months: Yes Aproximately how many cigarettes per day: 20 Hx Chewing Tobacco Use: No Initiated information on smoking cessation: Yes 'Breaking Loose' booklet given: 04/03/18 - Substance & Tx. History Hx Alcohol Use: Yes (LIQUOR) Hx Substance Use: Yes (HEROIN/COCAINE) Substance Use Type: Alcohol, Cocaine, Heroin Hx Substance Use Treatment: Yes (LAST TX AT [facility]) - Substances Abused Heroin Route: Injection Frequency: Daily Amount used: 10-20 BAGS Age of first use: 29 Date of Last Use: 04/01/18 Alcohol Route: Oral Frequency: Daily Amount used: 1 PINT LIQUOR Age of first use: 13 Date of Last Use: 04/01/18 Cocaine Route: Injection Frequency: Daily Amount used: $100 Age of first use: 21 Date of Last Use: 04/01/18 Family Disease History - Family Disease History Family Disease History: Heart Disease: Mother (shara), Other: Father (dec, alcoholic, suicide ) Admission Physical Exam [facility] - Vital Signs Vital Signs: Vital Signs - 24 hr 04/03/18 09:49 Temperature 98.0 F Pulse Rate 57 L Respiratory 18 Rate Blood Pressure 107/69 - Physical General Appearance: Yes: Appropriately Dressed, Moderate Distress, Irritable, Sweating, Anxious HEENTM: Yes: EOMI, Normocephalic, JACOBO, Pharynx Normal Respiratory: Yes: Chest Non-Tender, No Respiratory Distress, Rhonchi, Wheezing Neck: Yes: No masses,lesions,Nodules, Supple, Trachea in good position Breast: Yes: Breast Exam Deferred Cardiology: Yes: Regular Rhythm, Regular Rate, S1, S2 Abdominal: Yes: Normal Bowel Sounds, Non Tender, Flat, Soft Genitourinary: Yes: Other (N/C) Back: Yes: Within Normal Limits Musculoskeletal: Yes: full range of Motion, Gait Steady Extremities: Yes: Normal Range of Motion, Non-Tender Neurological: Yes: development expert II-XII NML intact, Fully Oriented, Alert, Motor Strength 5/5 Integumentary: Yes: Dry, Warm, Track Awad (BOTH FOREARMS/NECK--NO REDNESS OR SWELLINGS) Lymphatic: Yes: Within Normal Limits - Diagnostic (1) Alcohol dependence with withdrawal, uncomplicated Current Visit: Yes Status: Acute (2) Cocaine dependence Current Visit: Yes Status: Acute Qualifiers: Substance use status: uncomplicated Qualified Code(s): F14.20 - Cocaine dependence, uncomplicated (3) Dehydration Current Visit: Yes Status: Acute (4) Nicotine dependence Current Visit: Yes Status: Acute Qualifiers: Nicotine product type: cigarettes Substance use status: in withdrawal Qualified Code(s): F17.213 - Nicotine dependence, cigarettes, with withdrawal (5) Opioid dependence with withdrawal Current Visit: Yes Status: Acute (6) Asthma Current Visit: Yes Status: Chronic Qualifiers: Asthma severity: mild Asthma persistence: intermittent Asthma complication type: uncomplicated Qualified Code(s): J45.20 - Mild intermittent asthma, uncomplicated Cleared for Admission [facility] - Detox or Rehab [facility] Level of Care: Medically Managed Detox Regimen/Protocol: Methadone/Librium [facility] Breath Alcohol Content Breath Alcohol Content: 0 Urine Drug Screen - Results Drug Screen Negative: No Urine Drug Screen Results: GUANACO-Cocaine, OPI-Opiates, BZO-Benzodiazepines, MTD- Methadone
[2018-04-03] MEDS ORDERED: LOPERAMIDE HCL 2 MG CAPSULE PO PRN (13:18)
[2018-04-03] MEDS ORDERED: NICOTINE POLACRILEX 4 MG GUM BUC PRN (13:18)
[2018-04-03] MEDS ORDERED: guaiFENesin/D-METHORPHAN HB 10 ML UNIT-DOSE CUPS PO PRN (13:18)
[2018-04-03] MEDS ORDERED: MAGNESIUM HYDROX 2400MG/30ML ORAL SUSPENSION 30 ML CUP PO PRN (13:18)
[2018-04-03] MEDS ORDERED: MAGNESIUM CITRATE 300 ML BOTTLE PO PRN (13:18)
[2018-04-03] MEDS ORDERED: MENTHOL/PHENOL 1 EACH UD MM PRN (13:18)
[2018-04-03] MEDS ORDERED: ACETAMINOPHEN 325 MG TABLET (FP) PO PRN (13:18)
[2018-04-03] MEDS ORDERED: IBUPROFEN 400 MG TABLET (FP) PO PRN (13:18)
[2018-04-03] MEDS ORDERED: P-EPHED 60MG/TRIPROLIDI 2.5MG TABLET PO PRN (13:18)
[2018-04-03] MEDS ORDERED: MAG HYDROX/AL HYDROX/SIMETH 30 ML UNIT-DOSE CUP PO PRN (13:18)
[2018-04-03] MEDS ORDERED: ALBUTEROL SO4 8 GM HFA INHALER IH PRN (13:57)
[2018-04-03] MEDS ORDERED: ALBUTEROL SO4 8 GM HFA INHALER IH SCH (14:00)
[2018-04-03] MEDS ORDERED: METHADONE HCL 10 MG TABLET (FOR DETOX USE ONLY) PO ONE ×2 (14:00→23:00)
[2018-04-03] MEDS: NICOTINE 21 MG/24 HOURS TOPICAL PATCH TD SCH (14:36)
[2018-04-03] MEDS: chlordiazePOXIDE HCL 25 MG CAPSULE PO PRN (14:43)
[2018-04-03] MEDS: chlordiazePOXIDE HCL 25 MG CAPSULE PO SCH ×2 (17:48→22:55)
[2018-04-03] MEDS: ALBUTEROL SO4 0.083% IH SOL 2.5 MG/3 ML VIAL.NEB. NEB SCH ×2 (17:49→22:56)
[2018-04-03 17:55] LABS: URINE APPEARANCE TURBID; URINE BILIRUBIN NEGATIVE (<2.0 mg/dL); URINE COLOR YELLOW; URINE GLUCOSE (UA) NEGATIVE (NEGATIVE); URINE KETONE NEGATIVE (NEGATIVE); URINE LEUK ESTERASE NEGATIVE (NEGATIVE); URINE NITRITE NEGATIVE (NEGATIVE); URINE PROTEIN NEGATIVE (NEGATIVE); URINE UROBILINOGEN NEGATIVE mg/dL (0.2-1.0)
[2018-04-03] MEDS: THIAMINE HCL 100 MG TABLET (FP) PO SCH (22:55)
[2018-04-03] MEDS: MELATONIN 5 MG TABLETS PO PRN (22:56)
[2018-04-04] MEDS: chlordiazePOXIDE HCL 25 MG CAPSULE PO SCH ×4 (06:09→22:06)
[2018-04-04] MEDS ORDERED: METHADONE HCL 10 MG TABLET (FOR DETOX USE ONLY) PO SCH (10:00)
[2018-04-04 10:30] LABS: HEMATOCRIT 36.4 % (35.4-49); HEMOGLOBIN 12.1 GM/dL (11.7-16.9); MCH 31.5 pg (25.7-33.7); MCHC 33.4 g/dl (32.0-35.9); MEAN CELL VOLUME 94.4 fl (80-96); MEAN PLT VOLUME 8.6 fl (7.5-11.1); PLATELET COUNT 308 K/MM3 (134-434); RBC 3.85 M/mm3 (4.00-5.60); RDW 14.4 % (11.9-15.9); WHITE BLOOD COUNT 5.7 K/mm3 (4.0-10.0)
[2018-04-04] MEDS: chlordiazePOXIDE HCL 25 MG CAPSULE PO PRN (11:01)
[2018-04-04] MEDS: PRENATAL VITAMINS W/ FOLIC ACID TABLET (FP) PO SCH (11:01)
[2018-04-04] MEDS: NICOTINE 21 MG/24 HOURS TOPICAL PATCH TD SCH (11:02)
[2018-04-04] MEDS: ALBUTEROL SO4 0.083% IH SOL 2.5 MG/3 ML VIAL.NEB. NEB SCH ×4 (11:03→22:06)
[2018-04-04 11:13] LABS: ALBUMIN 3.3 g/dl (3.4-5.0); ALK PHOS 80 U/L (45-117); ANION GAP 8 (8-16); BILIRUBIN,TOTAL 0.2 mg/dL (0.2-1.0); BLOOD UREA NITROGEN 11 mg/dL (7-18); CALCIUM 8.8 mg/dL (8.5-10.1); CHLORIDE 105 mmol/L (98-107); CO2 28 mmol/L (21-32); CREATININE 0.9 mg/dL (0.7-1.3); GLUCOSE,RANDOM 101 mg/dL (74-106); POTASSIUM 3.9 mmol/L (3.5-5.1); SGOT/AST 63 U/L (15-37); SGPT/ALT 165 U/L (12-78); SODIUM 141 mmol/L (136-145); TOT PROT 6.8 g/dl (6.4-8.2)
--- NOTE | 2018-04-04 13:59 | PN ---
[facility] CIWA - CIWA Score Nausea/Vomitin Muscle Tremors: 3 Anxiety: 3 Agitation: 3 Paroxysmal Sweats: 1-Minimal Palms Moist Orientation: 0-Oriented Tacttile Disturbances: 1-Very Mild Itch/Numbness Auditory Disturbances: 1-Very Mild Visual Disturbances: 0-None Headache: 2-Mild CIWA-Ar Total Score: 17 BHS COWS - Scale Resting Pulse: 0= DC 80 or Below Sweatin= Chills/Flushing Restless Observation: 3= Extraneous Movement Pupil Size: 1= Pupils >than Normal Bone or Joint Aches: 2= Severe Diffuse Aches Runny Nose/ Eye Tearin= Runny Nose/Eyes GI Upset > 30mins: 2= Nausea/Diarrhea Tremor Observation of Outstretched Hands: 2= Slight Tremor Visible Yawning Observation: 1= 1-2x During Session Anxiety or Irritability: 2=Irritable/Anxious Goose Flesh Skin: 0=Smooth Skin COWS Score: 16 S Progress Note (SOAP) Subjective: alert,irritable,anxious,interrupted sleep,tremor,pain in the body and back Objective: 04/04/18 13:55 Vital Signs Temperature 97.7 F 04/04/18 09:55 Pulse Rate 67 04/04/18 09:55 Respiratory Rate 18 04/04/18 09:55 Blood Pressure 100/57 04/04/18 09:55 O2 Sat by Pulse Oximetry (%) ekg sinus bradycardia 59 qt/qtc 454/449 no chest pain,no sob,no dizziness Laboratory Last Values WBC 5.7 K/mm3 (4.0-10.0) 04/04/18 06:00 RBC 3.85 M/mm3 (4.00-5.60) L 04/04/18 06:00 Hgb 12.1 GM/dL (11.7-16.9) 04/04/18 06:00 Hct 36.4 % (35.4-49) 04/04/18 06:00 MCV 94.4 fl (80-96) 04/04/18 06:00 MCH 31.5 pg (25.7-33.7) 04/04/18 06:00 MCHC 33.4 g/dl (32.0-35.9) 04/04/18 06:00 RDW 14.4 % (11.9-15.9) 04/04/18 06:00 Plt Count 308 K/MM3 (134-434) 04/04/18 06:00 MPV 8.6 fl (7.5-11.1) D 04/04/18 06:00 Sodium 141 mmol/L (136-145) 04/04/18 06:00 Potassium 3.9 mmol/L (3.5-5.1) 04/04/18 06:00 Chloride 105 mmol/L (98-107) 04/04/18 06:00 Carbon Dioxide 28 mmol/L (21-32) 04/04/18 06:00 Anion Gap 8 (8-16) 04/04/18 06:00 BUN 11 mg/dL (7-18) 04/04/18 06:00 Creatinine 0.9 mg/dL (0.7-1.3) 04/04/18 06:00 Creat Clearance w eGFR > 60 (>60) 04/04/18 06:00 Random Glucose 101 mg/dL (74-106) D 04/04/18 06:00 Calcium 8.8 mg/dL (8.5-10.1) 04/04/18 06:00 Total Bilirubin 0.2 mg/dL (0.2-1.0) 04/04/18 06:00 AST 63 U/L (15-37) H 04/04/18 06:00 ALT 165 U/L (12-78) H D 04/04/18 06:00 Alkaline Phosphatase 80 U/L (45-117) 04/04/18 06:00 Total Protein 6.8 g/dl (6.4-8.2) 04/04/18 06:00 Albumin 3.3 g/dl (3.4-5.0) L 04/04/18 06:00 Urine Color Yellow 04/03/18 16:00 Urine Appearance Turbid 04/03/18 16:00 Urine pH 7.0 (5.0-8.0) 04/03/18 16:00 Ur Specific [place] 1.015 (1.001-1.035) 04/03/18 16:00 Urine Protein Negative (NEGATIVE) 04/03/18 16:00 Urine Glucose (UA) Negative (NEGATIVE) 04/03/18 16:00 Urine Ketones Negative (NEGATIVE) 04/03/18 16:00 Urine Blood Negative (NEGATIVE) 04/03/18 16:00 Urine Nitrite Negative (NEGATIVE) 04/03/18 16:00 Urine Bilirubin Negative (<2.0 mg/dL) 04/03/18 16:00 Urine Urobilinogen Negative mg/dL (0.2-1.0) 04/03/18 16:00 Ur Leukocyte Esterase Negative (NEGATIVE) 04/03/18 16:00 RPR Titer Nonreactive (NONREACTIVE) 04/04/18 06:00 Assessment: 04/04/18 13:57 withdrawal symptom Plan: continue detox,[id number],d/c tylenol,repeat alt,ast,inr in am
--- NOTE | 2018-04-04 19:04 | EKG ---
Test Reason : Blood Pressure : / mmHG Vent. Rate : 059 BPM Atrial Rate : 059 BPM P-R Int : 152 ms QRS Dur : 094 ms QT Int : 454 ms P-R-T Axes : 058 050 041 degrees QTc Int : 449 ms SINUS BRADYCARDIA OTHERWISE NORMAL ECG WHEN COMPARED WITH ECG OF 18-FEB-2018 02:31, NO SIGNIFICANT CHANGE WAS FOUND Confirmed by MD MANI, ERIK ([id number]) on 04/04/2018 7:03:26 PM Referred By: Confirmed By:ERIK SINGLETON MD
[2018-04-04] MEDS: THIAMINE HCL 100 MG TABLET (FP) PO SCH (22:07)
[2018-04-04] MEDS: MELATONIN 5 MG TABLETS PO PRN (22:08)
[2018-04-05] MEDS: chlordiazePOXIDE HCL 25 MG CAPSULE PO SCH ×2 (06:20→11:01)
[2018-04-05] MEDS: PRENATAL VITAMINS W/ FOLIC ACID TABLET (FP) PO SCH (11:01)
[2018-04-05] MEDS: NICOTINE 21 MG/24 HOURS TOPICAL PATCH TD SCH (11:01)
[2018-04-05] MEDS: METHADONE HCL 5 MG TABLET (FOR DETOX USE ONLY) PO SCH (11:01)
[2018-04-05] MEDS: ALBUTEROL SO4 0.083% IH SOL 2.5 MG/3 ML VIAL.NEB. NEB SCH ×3 (11:01→22:13)
[2018-04-05] MEDS: chlordiazePOXIDE 5 MG CAPSULE PO SCH ×2 (17:31→22:13)
--- NOTE | 2018-04-05 17:34 | PN ---
S CIWA - CIWA Score Nausea/Vomitin-Mild Nausea/No Vomiting Muscle Tremors: 4-Moderate,w/Arms Extend Anxiety: 1-Mildly Anxious Agitation: 1-Slight > Activity Paroxysmal Sweats: 4-Forehead w/Sweat Beads Orientation: 0-Oriented Tacttile Disturbances: 0-None Auditory Disturbances: 0-None Visual Disturbances: 0-None Headache: 0-None Present CIWA-Ar Total Score: 11 S COWS - Scale Resting Pulse: 0= HI 80 or Below Sweatin= Beads of Sweat on Face Restless Observation: 1= Difficult to Sit Still Pupil Size: 2= Moderately Dilated Bone or Joint Aches: 0= None Runny Nose/ Eye Tearin= None GI Upset > 30mins: 2= Nausea/Diarrhea (No diarrhea.) Tremor Observation of Outstretched Hands: 2= Slight Tremor Visible Yawning Observation: 0= None Anxiety or Irritability: 2=Irritable/Anxious Goose Flesh Skin: 0=Smooth Skin COWS Score: 12 S Progress Note (SOAP) Subjective: C/o withdrawal symptoms. States "very uncomfortable, anxious, and nervous'. Feeling C/o nausea but able to tolerate foods. Objective: Scored 11 on CIWA and 12 on COWS. Alert and oriented x 3. Lungs CTA. Abdomen soft and non-tender. Hyperactive bowel sounds. Moderate tremors of hands. Lab Results WBC 5.7 K/mm3 (4.0-10.0) 04/04/18 06:00 RBC 3.85 M/mm3 (4.00-5.60) L 04/04/18 06:00 Hgb 12.1 GM/dL (11.7-16.9) 04/04/18 06:00 Hct 36.4 % (35.4-49) 04/04/18 06:00 MCV 94.4 fl (80-96) 04/04/18 06:00 MCHC 33.4 g/dl (32.0-35.9) 04/04/18 06:00 RDW 14.4 % (11.9-15.9) 04/04/18 06:00 Plt Count 308 K/MM3 (134-434) 04/04/18 06:00 Sodium 141 mmol/L (136-145) 04/04/18 06:00 Potassium 3.9 mmol/L (3.5-5.1) 04/04/18 06:00 Chloride 105 mmol/L (98-107) 04/04/18 06:00 Carbon Dioxide 28 mmol/L (21-32) 04/04/18 06:00 Anion Gap 8 (8-16) 04/04/18 06:00 BUN 11 mg/dL (7-18) 04/04/18 06:00 Creatinine 0.9 mg/dL (0.7-1.3) 04/04/18 06:00 Random Glucose 101 mg/dL (74-106) D 04/04/18 06:00 Calcium 8.8 mg/dL (8.5-10.1) 04/04/18 06:00 Vital Signs 04/05/18 04/05/18 13:00 15:15 Temperature 98.6 F 97.9 F Pulse Rate 72 67 Respiratory 20 18 Rate Blood Pressure 115/58 114/56 Reviewed labs and V/S. 04/05/18 17:32 Assessment: Opiate and alcohol withdrawal. 04/05/18 17:34 Plan: Continue detox protocol.
[2018-04-05] MEDS: THIAMINE HCL 100 MG TABLET (FP) PO SCH (22:13)
[2018-04-05] MEDS: MELATONIN 5 MG TABLETS PO PRN (22:14)
[2018-04-06] MEDS: chlordiazePOXIDE 5 MG CAPSULE PO SCH ×2 (05:28→11:02)
[2018-04-06] MEDS: PRENATAL VITAMINS W/ FOLIC ACID TABLET (FP) PO SCH (11:01)
[2018-04-06] MEDS: METHADONE HCL 5 MG TABLET (FOR DETOX USE ONLY) PO SCH (11:02)
[2018-04-06] MEDS: NICOTINE 21 MG/24 HOURS TOPICAL PATCH TD SCH (11:02)
[2018-04-06 11:05] VITALS: BP 101/50; PULSE 58; TEMP 97.7
--- NOTE | 2018-04-06 12:37 | PN ---
[facility] Progress Note (SOAP) Subjective: alert,irritable,anxious,interrupted sleep,pain in the body Objective: 04/06/18 12:36 Vital Signs Temperature 97.7 F 04/06/18 11:03 Pulse Rate 58 L 04/06/18 11:03 Respiratory Rate 18 04/06/18 11:03 Blood Pressure 101/50 04/06/18 11:03 O2 Sat by Pulse Oximetry (%) Assessment: 04/06/18 12:36 withdrawal symptom Plan: continue detox
--- NOTE | 2018-04-06 13:28 | PN ---
[facility] Progress Note Note: patient did not want to complete treatment,declined to give reason,all attempts to convince patient to stay with no avail,seen by counselor,signed release ama,risk of withdrawal and relapse explained, advise to go to er if emergency medical problem
--- NOTE | 2018-04-06 13:31 | DS ---
[facility] Detox Discharge Summary Admission Date: 04/03/18 Discharge Date: 04/06/18 - History Present History: Alcohol Dependence, Cocaine Dependence, Opioid Dependence Additional Comments: patient signed release ama Pertinent Past History: dehydration asthma dehydration - Physical Exam Results Vital Signs: Vital Signs Temperature 97.7 F 04/06/18 11:03 Pulse Rate 58 L 04/06/18 11:03 Respiratory Rate 18 04/06/18 11:03 Blood Pressure 101/50 04/06/18 11:03 O2 Sat by Pulse Oximetry (%) Pertinent Admission Physical Exam Findings: withdrawal signs and symptom Laboratory Last Values WBC 5.7 K/mm3 (4.0-10.0) 04/04/18 06:00 RBC 3.85 M/mm3 (4.00-5.60) L 04/04/18 06:00 Hgb 12.1 GM/dL (11.7-16.9) 04/04/18 06:00 Hct 36.4 % (35.4-49) 04/04/18 06:00 MCV 94.4 fl (80-96) 04/04/18 06:00 MCH 31.5 pg (25.7-33.7) 04/04/18 06:00 MCHC 33.4 g/dl (32.0-35.9) 04/04/18 06:00 RDW 14.4 % (11.9-15.9) 04/04/18 06:00 Plt Count 308 K/MM3 (134-434) 04/04/18 06:00 MPV 8.6 fl (7.5-11.1) D 04/04/18 06:00 Sodium 141 mmol/L (136-145) 04/04/18 06:00 Potassium 3.9 mmol/L (3.5-5.1) 04/04/18 06:00 Chloride 105 mmol/L (98-107) 04/04/18 06:00 Carbon Dioxide 28 mmol/L (21-32) 04/04/18 06:00 Anion Gap 8 (8-16) 04/04/18 06:00 BUN 11 mg/dL (7-18) 04/04/18 06:00 Creatinine 0.9 mg/dL (0.7-1.3) 04/04/18 06:00 Creat Clearance w eGFR > 60 (>60) 04/04/18 06:00 Random Glucose 101 mg/dL (74-106) D 04/04/18 06:00 Calcium 8.8 mg/dL (8.5-10.1) 04/04/18 06:00 Total Bilirubin 0.2 mg/dL (0.2-1.0) 04/04/18 06:00 AST 63 U/L (15-37) H 04/04/18 06:00 ALT 165 U/L (12-78) H D 04/04/18 06:00 Alkaline Phosphatase 80 U/L (45-117) 04/04/18 06:00 Total Protein 6.8 g/dl (6.4-8.2) 04/04/18 06:00 Albumin 3.3 g/dl (3.4-5.0) L 04/04/18 06:00 Urine Color Yellow 04/03/18 16:00 Urine Appearance Turbid 04/03/18 16:00 Urine pH 7.0 (5.0-8.0) 04/03/18 16:00 Ur Specific [place] 1.015 (1.001-1.035) 04/03/18 16:00 Urine Protein Negative (NEGATIVE) 04/03/18 16:00 Urine Glucose (UA) Negative (NEGATIVE) 04/03/18 16:00 Urine Ketones Negative (NEGATIVE) 04/03/18 16:00 Urine Blood Negative (NEGATIVE) 04/03/18 16:00 Urine Nitrite Negative (NEGATIVE) 04/03/18 16:00 Urine Bilirubin Negative (<2.0 mg/dL) 04/03/18 16:00 Urine Urobilinogen Negative mg/dL (0.2-1.0) 04/03/18 16:00 Ur Leukocyte Esterase Negative (NEGATIVE) 04/03/18 16:00 RPR Titer Nonreactive (NONREACTIVE) 04/04/18 06:00 Vital Signs Temperature 97.7 F 04/06/18 11:03 Pulse Rate 58 L 04/06/18 11:03 Respiratory Rate 18 04/06/18 11:03 Blood Pressure 101/50 04/06/18 11:03 O2 Sat by Pulse Oximetry (%) - Medication Discharge Medications: Ambulatory Orders Albuterol Sulfate Inhaler - [Ventolin Hfa Inhaler -] 2 inh PO Q4H PRN 08/17/18 - Diagnosis (1) Opioid dependence with withdrawal Current Visit: Yes Status: Acute (2) Alcohol dependence with withdrawal, uncomplicated Current Visit: Yes Status: Acute (3) Cocaine dependence Current Visit: Yes Status: Acute Qualifiers: Substance use status: uncomplicated Qualified Code(s): F14.20 - Cocaine dependence, uncomplicated (4) Dehydration Current Visit: Yes Status: Acute (5) Nicotine dependence Current Visit: Yes Status: Acute Qualifiers: Nicotine product type: cigarettes Substance use status: in withdrawal Qualified Code(s): F17.213 - Nicotine dependence, cigarettes, with withdrawal (6) Asthma Current Visit: Yes Status: Chronic Qualifiers: Asthma severity: mild Asthma persistence: intermittent Asthma complication type: uncomplicated Qualified Code(s): J45.20 - Mild intermittent asthma, uncomplicated - AMA Did Patient Leave Against Medical Advice: Yes
[2018-04-06] MEDS ORDERED: chlordiazePOXIDE HCL 10 MG CAPSULE PO SCH (17:00)
[2018-04-07] MEDS ORDERED: METHADONE HCL 10 MG TABLET (FOR DETOX USE ONLY) PO SCH (10:00)
[2018-04-08] MEDS ORDERED: METHADONE HCL 5 MG TABLET (FOR DETOX USE ONLY) PO SCH (06:00)
== END 2018-04-06 14:20 | disposition left against medical advice (07) | DRG 770 ==
LOC: YASAS 09:02 → Y6N 12:16
PROVIDERS: ADMIT Surgery; ATTEND Surgery
PROC: HZ2ZZZZ Detoxification Services for Substance Abuse Treatment (ICD-10-PCS; principal; 2018-04-03)
DX: F11.23 Opioid dependence with withdrawal (principal); F10.230 Alcohol dependence with withdrawal, uncomplicated; F14.20 Cocaine dependence, uncomplicated; F17.213 Nicotine dependence, cigarettes, with withdrawal; E86.0 Dehydration; J45.20 Mild intermittent asthma, uncomplicated; R00.0 Tachycardia, unspecified; Z88.8 Allergy status to other drugs, medicaments and biological substances
CPT/HCPCS: 36415; 80053; 81003; 85027; 86593; 93005; 93010; 94640

== ENCOUNTER 2023-12-11 11:19 | Inpatient (IN) | payer OTHER ==
[2023-12-11 12:21] VITALS: BMI 22.8
[2023-12-11] MEDS ORDERED: hydrOXYzine PAMOATE 25 MG CAPSULE (FP) PO PRN (13:34)
[2023-12-11] MEDS ORDERED: POLYETHYLENE GLYCOL (HEALTHYLAX) 3350 17 GM PACKET PO PRN (13:34)
[2023-12-11] MEDS ORDERED: BISMUTH SUBSALICYLATE 524 MG/30 ML PO PRN (13:34)
[2023-12-11] MEDS ORDERED: MAGNESIUM HYDROX 2400MG/30ML ORAL SUSPENSION 30 ML CUP PO PRN (13:34)
[2023-12-11] MEDS ORDERED: NALOXONE HCL 0.4 MG/ML VIAL IM PRN (13:34)
[2023-12-11] MEDS ORDERED: ACETAMINOPHEN 325 MG TABLET (FP) PO PRN (13:34)
[2023-12-11] MEDS ORDERED: MAG HYDROX/AL HYDROX/SIMETH 30 ML UNIT-DOSE CUP PO PRN (13:34)
[2023-12-11] MEDS ORDERED: ONDANSETRON *ODT* 4 MG TABLET SL PRN (13:34)
[2023-12-11] MEDS ORDERED: LOPERAMIDE HCL 2 MG CAPSULE PO PRN (13:34)
[2023-12-11] MEDS ORDERED: IBUPROFEN 600 MG TABLET (FP) PO PRN (13:34)
[2023-12-11] MEDS ORDERED: diazePAM 5 MG TABLET PO PRN (13:34)
[2023-12-11] MEDS ORDERED: NALOXONE HCL (KLOXXADO) 8 MG SPRAY NS PRN (13:34)
[2023-12-11] MEDS ORDERED: BENZOCAINE/MENTHOL (CHLORASEPTIC ) LOZENGE MM PRN (13:34)
[2023-12-11] MEDS ORDERED: guaiFENesin 600 MG TABLET.ER (FP) PO PRN (13:34)
[2023-12-11] MEDS ORDERED: IBUPROFEN 400 MG TABLET (FP) PO PRN (13:34)
[2023-12-11] MEDS ORDERED: BENZONATATE 200 MG CAPSULE PO PRN (13:34)
[2023-12-11] MEDS ORDERED: DICYCLOMINE HCL 10 MG CAPSULE PO PRN (13:34)
[2023-12-11] MEDS ORDERED: ALBUTEROL SO4 HFA INHALER IH PRN (13:36)
[2023-12-11] MEDS: NICOTINE 21 MG/24 HOURS TOPICAL PATCH TD SCH (14:40)
[2023-12-11] MEDS: PRENATAL VITAMINS W/ FOLIC ACID TABLET (FP) PO SCH (15:40)
[2023-12-11] MEDS: cloNIDine HCL 0.1 MG TABLET PO SCH (15:59)
[2023-12-11] MEDS: diazePAM 5 MG TABLET PO SCH (17:04)
[2023-12-11] MEDS: methaDONE HCL 10 MG TABLET PO ONE ×4 (17:05→22:42)
[2023-12-11] MEDS: THIAMINE 100 MG TABLET PO SCH (22:41)
[2023-12-11] MEDS: MELATONIN 5 MG TABLETS PO SCH (22:41)
[2023-12-11] MEDS: METHOCARBAMOL 500 MG TABLET PO PRN (22:42)
[2023-12-12] MEDS: methaDONE 40 MG, methaDONE 10 MG PO ONE (05:36)
[2023-12-12 11:46] LABS: POTASSIUM 4.2 mmol/L (3.5-5.1)
[2023-12-12 11:47] LABS: CALCIUM 9.3 mg/dL (8.5-10.1)
[2023-12-12 11:49] LABS: ALBUMIN 3.5 g/dl (3.4-5.0); BLOOD UREA NITROGEN 14.5 mg/dL (7-18)
[2023-12-12 11:50] LABS: HEMATOCRIT 41.8 % (35.4-49); MCH 31.9 pg (25.7-33.7); MCHC 33.5 g/dl (32.0-35.9); MEAN CELL VOLUME 95.2 fl (80-96); MEAN PLT VOLUME 8.9 fl (7.5-11.1); PLATELET COUNT 170 10^3/uL (134-434); RBC 4.39 M/mm3 (4.00-5.60); RDW 13.1 % (11.9-15.9); WHITE BLOOD COUNT 4.1 K/mm3 (4.0-10.0)
[2023-12-12 11:51] LABS: CREATININE 0.7 mg/dL (0.55-1.3)
[2023-12-12 11:53] LABS: BILIRUBIN,TOTAL 0.3 mg/dL (0.2-1); TOT PROT 7.4 g/dl (6.4-8.2)
[2023-12-13] MEDS ORDERED: cloNIDine HCL 0.1 MG TABLET PO PRN
[2023-12-13] MEDS: methaDONE 40 MG, methaDONE 20 MG PO ONE (05:36)
[2023-12-13] MEDS: diazePAM 5 MG TABLET PO SCH (05:36)
[2023-12-14] MEDS: diazePAM 5 MG TABLET PO ONE (00:03)
[2023-12-14] MEDS: diazePAM 5 MG TABLET PO SCH (05:21)
[2023-12-14] MEDS: methaDONE 40 MG, methaDONE 30 MG PO ONE (05:21)
[2023-12-14] MEDS: LACTULOSE 20 GM/30 ML UDC (FOR ORAL USE ONLY) PO SCH (13:20)
[2023-12-14 14:21] VITALS: BP 138/74; PULSE 57; RESP 18; TEMP 98.6
[2023-12-15] MEDS ORDERED: methaDONE HCL 40 MG DISPERSABLE TABLET PO ONE (06:00)
[2023-12-15] MEDS ORDERED: diazePAM 5 MG TABLET PO ONE (06:00)
[2023-12-16] MEDS ORDERED: methaDONE 80 MG, methaDONE 10 MG PO ONE (06:00)
== END 2023-12-14 14:08 | disposition home or self-care (01) | DRG 773 ==
LOC: YASAS 11:19 → Y6N 13:49
PROVIDERS: ADMIT Allergy & Immunology; ATTEND Surgery
PROC: HZ2ZZZZ Detoxification Services for Substance Abuse Treatment (ICD-10-PCS; principal; 2023-12-11)
DX: F11.23 Opioid dependence with withdrawal (principal); F10.230 Alcohol dependence with withdrawal, uncomplicated; F14.20 Cocaine dependence, uncomplicated; F12.20 Cannabis dependence, uncomplicated; F17.210 Nicotine dependence, cigarettes, uncomplicated; F19.24 Other psychoactive substance dependence with psychoactive substance-induced mood disorder; E72.20 Disorder of urea cycle metabolism, unspecified; J45.20 Mild intermittent asthma, uncomplicated; B18.1 Chronic viral hepatitis B without delta-agent; Z88.8 Allergy status to other drugs, medicaments and biological substances
CPT/HCPCS: 36415; 80053; 80307; 82140; 85027; 86780; 93005; 93010

== ENCOUNTER 2023-12-29 20:06 | Inpatient (IN) | payer OTHER ==
[2023-12-29 21:21] VITALS: BMI 19.4
[2023-12-29] MEDS ORDERED: ACETAMINOPHEN 325 MG TABLET (FP) PO PRN (21:44)
[2023-12-29] MEDS ORDERED: NALOXONE HCL 0.4 MG/ML VIAL IM PRN (21:44)
[2023-12-29] MEDS ORDERED: NALOXONE HCL (KLOXXADO) 8 MG SPRAY NS PRN (21:44)
[2023-12-29] MEDS ORDERED: POLYETHYLENE GLYCOL (HEALTHYLAX) 3350 17 GM PACKET PO PRN (21:44)
[2023-12-29] MEDS ORDERED: IBUPROFEN 400 MG TABLET (FP) PO PRN (21:44)
[2023-12-29] MEDS ORDERED: BENZONATATE 200 MG CAPSULE PO PRN (21:44)
[2023-12-29] MEDS ORDERED: NICOTINE POLACRILEX 2 MG GUM BUC PRN (21:44)
[2023-12-29] MEDS ORDERED: MAGNESIUM HYDROX 2400MG/30ML ORAL SUSPENSION 30 ML CUP PO PRN (21:44)
[2023-12-29] MEDS ORDERED: DICYCLOMINE HCL 10 MG CAPSULE PO PRN (21:44)
[2023-12-29] MEDS ORDERED: BENZOCAINE/MENTHOL (CHLORASEPTIC ) LOZENGE MM PRN (21:44)
[2023-12-29] MEDS ORDERED: ONDANSETRON *ODT* 4 MG TABLET SL PRN (21:44)
[2023-12-29] MEDS ORDERED: guaiFENesin 600 MG TABLET.ER (FP) PO PRN (21:44)
[2023-12-29] MEDS ORDERED: MAG HYDROX/AL HYDROX/SIMETH 30 ML UNIT-DOSE CUP PO PRN (21:44)
[2023-12-29] MEDS ORDERED: LOPERAMIDE HCL 2 MG CAPSULE PO PRN (21:44)
[2023-12-29] MEDS ORDERED: BISMUTH SUBSALICYLATE 524 MG/30 ML PO PRN (21:44)
[2023-12-29] MEDS: MELATONIN 5 MG TABLETS PO SCH (23:25)
[2023-12-29] MEDS: METHOCARBAMOL 500 MG TABLET PO ONE (23:26)
[2023-12-29] MEDS: THIAMINE 100 MG TABLET PO SCH (23:27)
[2023-12-30] MEDS: IBUPROFEN 600 MG TABLET (FP) PO PRN (05:37)
[2023-12-30] MEDS: hydrOXYzine PAMOATE 25 MG CAPSULE (FP) PO PRN (05:38)
[2023-12-30] MEDS: METHOCARBAMOL 500 MG TABLET PO PRN (05:39)
[2023-12-30] MEDS ORDERED: chlordiazePOXIDE HCL 25 MG CAPSULE PO PRN (10:05)
[2023-12-30] MEDS ORDERED: ALBUTEROL SO4 HFA INHALER IH PRN (10:06)
[2023-12-30] MEDS ORDERED: diazePAM 5 MG TABLET PO PRN (10:09)
[2023-12-30] MEDS: diazePAM 5 MG TABLET PO SCH (10:31)
[2023-12-30] MEDS: methaDONE HCL 10 MG TABLET (FOR DETOX USE ONLY) PO ONE (10:32)
[2023-12-30] MEDS: PRENATAL VITAMINS W/ FOLIC ACID TABLET (FP) PO SCH (10:34)
[2023-12-30] MEDS ORDERED: chlordiazePOXIDE HCL 25 MG CAPSULE PO SCH (11:00)
[2023-12-30] MEDS: cloNIDine HCL 0.1 MG TABLET PO PRN (22:11)
[2023-12-31 10:10] VITALS: BP 132/75; PULSE 59; RESP 18; TEMP 97.6
[2024-01-01] MEDS ORDERED: chlordiazePOXIDE HCL 25 MG CAPSULE PO SCH (05:00)
[2024-01-01] MEDS ORDERED: diazePAM 5 MG TABLET PO SCH (06:00)
[2024-01-01] MEDS ORDERED: methaDONE HCL 10 MG TABLET (FOR DETOX USE ONLY) PO ONE (10:00)
[2024-01-02] MEDS ORDERED: chlordiazePOXIDE HCL 10 MG CAPSULE PO PRN
[2024-01-02] MEDS ORDERED: chlordiazePOXIDE HCL 10 MG CAPSULE PO SCH (05:00)
[2024-01-02] MEDS ORDERED: diazePAM 5 MG TABLET PO SCH (06:00)
[2024-01-03] MEDS ORDERED: chlordiazePOXIDE HCL 10 MG CAPSULE PO SCH (05:00)
[2024-01-03] MEDS ORDERED: diazePAM 5 MG TABLET PO ONE (06:00)
[2024-01-03] MEDS ORDERED: methaDONE HCL 10 MG TABLET (FOR DETOX USE ONLY) PO ONE (10:00)
[2024-01-04] MEDS ORDERED: chlordiazePOXIDE HCL 10 MG CAPSULE PO ONE (05:00)
== END 2023-12-31 11:19 | disposition left against medical advice (07) | DRG 770 ==
LOC: YASAS 20:06 → Y3N 22:30
PROVIDERS: ADMIT Allergy & Immunology; ATTEND Surgery
PROC: HZ2ZZZZ Detoxification Services for Substance Abuse Treatment (ICD-10-PCS; principal; 2023-12-29)
DX: F11.23 Opioid dependence with withdrawal (principal); F10.230 Alcohol dependence with withdrawal, uncomplicated; F14.10 Cocaine abuse, uncomplicated; F12.20 Cannabis dependence, uncomplicated; F17.210 Nicotine dependence, cigarettes, uncomplicated; F19.24 Other psychoactive substance dependence with psychoactive substance-induced mood disorder; B19.10 Unspecified viral hepatitis B without hepatic coma; J45.909 Unspecified asthma, uncomplicated; Z56.0 Unemployment, unspecified; Z59.00 Homelessness unspecified; Z88.8 Allergy status to other drugs, medicaments and biological substances
CPT/HCPCS: 80305; 93005; 93010

== ENCOUNTER 2024-10-08 14:20 | Inpatient (IN) | payer OTHER ==
[2024-10-08 15:40] VITALS: BMI 28.5
[2024-10-08] MEDS ORDERED: ALBUTEROL SO4 HFA INHALER IH PRN (18:20)
[2024-10-08] MEDS ORDERED: NICOTINE POLACRILEX 2 MG GUM BUC PRN (18:26)
[2024-10-08] MEDS ORDERED: BENZOCAINE/MENTHOL (CHLORASEPTIC ) LOZENGE MM PRN (18:26)
[2024-10-08] MEDS ORDERED: MAGNESIUM HYDROX 2400MG/30ML ORAL SUSPENSION 30 ML CUP PO PRN (18:26)
[2024-10-08] MEDS ORDERED: NICOTINE POLACRILEX 2 MG LOZENGE BC PRN (18:26)
[2024-10-08] MEDS ORDERED: MAG HYDROX/AL HYDROX/SIMETH 30 ML UNIT-DOSE CUP PO PRN (18:26)
[2024-10-08] MEDS ORDERED: LOPERAMIDE HCL 2 MG CAPSULE PO PRN (18:26)
[2024-10-08] MEDS ORDERED: POLYETHYLENE GLYCOL (HEALTHYLAX) 3350 17 GM PACKET PO PRN (18:26)
[2024-10-08] MEDS ORDERED: BENZONATATE 200 MG CAPSULE PO PRN (18:26)
[2024-10-08] MEDS ORDERED: ACETAMINOPHEN 325 MG TABLET (FP) PO PRN (18:26)
[2024-10-08] MEDS ORDERED: guaiFENesin 600 MG TABLET.ER (FP) PO PRN (18:26)
[2024-10-08] MEDS ORDERED: DICYCLOMINE HCL 10 MG CAPSULE PO PRN (18:26)
[2024-10-08] MEDS ORDERED: BISMUTH SUBSALICYLATE 524 MG/30 ML PO PRN (18:26)
[2024-10-08] MEDS ORDERED: NALOXONE (NARCAN) HCL 4 MG/0.1 ML SPRAY NS PRN (18:26)
[2024-10-08] MEDS ORDERED: IBUPROFEN 400 MG TABLET (FP) PO PRN (18:26)
[2024-10-08] MEDS: hydrOXYzine PAMOATE 25 MG CAPSULE (FP) PO PRN (22:29)
[2024-10-08] MEDS: THIAMINE 100 MG TABLET PO SCH (22:29)
[2024-10-08] MEDS: METHOCARBAMOL 500 MG TABLET PO PRN (22:29)
[2024-10-08] MEDS: MELATONIN 5 MG TABLETS PO SCH (22:29)
[2024-10-09] MEDS: PRENATAL VITAMINS W/ FOLIC ACID TABLET (FP) PO SCH (10:04)
[2024-10-09] MEDS: IBUPROFEN 600 MG TABLET (FP) PO PRN (10:06)
[2024-10-09] MEDS: methaDONE HCL 10 MG TABLET (FOR DETOX USE ONLY) PO ONE (10:48)
[2024-10-09] MEDS: chlordiazePOXIDE HCL 25 MG CAPSULE PO SCH (10:48)
[2024-10-09] MEDS: ONDANSETRON *ODT* 4 MG TABLET SL PRN (17:08)
[2024-10-09] MEDS: cloNIDine HCL 0.1 MG TABLET PO PRN (19:14)
[2024-10-10] MEDS: chlordiazePOXIDE HCL 25 MG CAPSULE PO SCH (05:35)
[2024-10-10] MEDS ORDERED: methaDONE HCL 10 MG TABLET PO ONE (10:48)
[2024-10-10 12:02] LABS: POTASSIUM 4.1 mmol/L (3.5-5.1)
[2024-10-10 12:03] LABS: BASO % 0.8 % (0-2.0); EOS % 2.1 % (0-4.5); HEMATOCRIT 43.5 % (35.4-49); HEMOGLOBIN 14.3 GM/dL (11.7-16.9); LYMPH % 39.1 % (8-40); MCH 31.3 pg (25.7-33.7); MCHC 32.9 g/dl (32.0-35.9); MEAN CELL VOLUME 95.1 fl (80-96); MEAN PLT VOLUME 8.8 fl (7.5-11.1); PLATELET COUNT 160 10^3/uL (134-434); RDW 14.1 % (11.9-15.9)
[2024-10-10 12:04] LABS: CALCIUM 9.3 mg/dL (8.5-10.1)
[2024-10-10 12:05] LABS: ALBUMIN 3.6 g/dl (3.4-5.0); BLOOD UREA NITROGEN 14.1 mg/dL (7-18)
[2024-10-10 12:08] LABS: CREATININE 0.7 mg/dL (0.55-1.3)
[2024-10-10 12:09] LABS: TOT PROT 7.2 g/dl (6.4-8.2)
[2024-10-10 12:43] LABS: RBC 4.58 M/mm3 (4.00-5.60); WHITE BLOOD COUNT 5.4 K/mm3 (4.0-10.0)
[2024-10-10] MEDS ORDERED: methaDONE HCL 10 MG TABLET PO PRN (12:50)
[2024-10-10] MEDS: cloNIDine HCL 0.1 MG TABLET PO SCH (13:33)
[2024-10-10] MEDS: chlordiazePOXIDE HCL 25 MG CAPSULE PO PRN (19:17)
[2024-10-11] MEDS ORDERED: chlordiazePOXIDE HCL 10 MG CAPSULE PO PRN
[2024-10-11] MEDS: chlordiazePOXIDE HCL 10 MG CAPSULE PO SCH (05:47)
[2024-10-11] MEDS: methaDONE 40 MG, methaDONE 20 MG PO ONE (09:45)
[2024-10-11] MEDS ORDERED: methaDONE 40 MG, methaDONE 10 MG PO ONE (10:00)
[2024-10-11] MEDS ORDERED: methaDONE HCL 40 MG DISPERSABLE TABLET PO ONE (10:00)
[2024-10-11] MEDS ORDERED: methaDONE HCL 10 MG TABLET (FOR DETOX USE ONLY) PO ONE (10:00)
[2024-10-12] MEDS ORDERED: cloNIDine HCL 0.1 MG TABLET PO PRN
[2024-10-12] MEDS: chlordiazePOXIDE HCL 10 MG CAPSULE PO SCH (05:56)
[2024-10-12] MEDS: methaDONE 40 MG, methaDONE 30 MG PO ONE (09:37)
[2024-10-12] MEDS ORDERED: methaDONE 40 MG, methaDONE 20 MG PO ONE (10:00)
[2024-10-12] MEDS ORDERED: methaDONE 40 MG, methaDONE 30 MG PO ONE (10:00)
[2024-10-12] MEDS ORDERED: methaDONE HCL 40 MG DISPERSABLE TABLET PO ONE (10:00)
[2024-10-12 20:49] VITALS: RESP 16
[2024-10-13] MEDS: chlordiazePOXIDE HCL 10 MG CAPSULE PO ONE (05:29)
[2024-10-13 08:50] VITALS: BP 145/88; PULSE 60; TEMP 98.2
[2024-10-13] MEDS: methaDONE HCL 40 MG DISPERSABLE TABLET PO ONE (09:06)
[2024-10-13] MEDS ORDERED: methaDONE 40 MG, methaDONE 30 MG PO ONE (10:00)
[2024-10-13] MEDS ORDERED: methaDONE HCL 10 MG TABLET (FOR DETOX USE ONLY) PO ONE (10:00)
[2024-10-14] MEDS ORDERED: methaDONE 80 MG, methaDONE 10 MG PO ONE (10:00)
[2024-10-14] MEDS ORDERED: methaDONE HCL 40 MG DISPERSABLE TABLET PO ONE (10:00)
[2024-10-15] MEDS ORDERED: methaDONE 80 MG, methaDONE 10 MG PO ONE (10:00)
== END 2024-10-13 09:35 | disposition other institution (70) | DRG 773 ==
LOC: YASAS 14:20 → Y6N 19:15
PROVIDERS: ADMIT Allergy & Immunology; ATTEND Allergy & Immunology
PROC: HZ2ZZZZ Detoxification Services for Substance Abuse Treatment (ICD-10-PCS; principal; 2024-10-08)
DX: F11.23 Opioid dependence with withdrawal (principal); F10.230 Alcohol dependence with withdrawal, uncomplicated; F14.20 Cocaine dependence, uncomplicated; F12.20 Cannabis dependence, uncomplicated; F17.210 Nicotine dependence, cigarettes, uncomplicated; F19.24 Other psychoactive substance dependence with psychoactive substance-induced mood disorder; B18.1 Chronic viral hepatitis B without delta-agent; J45.20 Mild intermittent asthma, uncomplicated
CPT/HCPCS: 36415; 80053; 80305; 80307; 85025; 86780; Q0162